=== PATIENT | female | born 1965 | race Caucasian/White ===

== ENCOUNTER 2020-04-12 20:38 | Emergency (ER) | payer BC ==
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
[2020-04-12] MEDS ORDERED: Ketorolac 60 MG/2 ML SDV IM ONE (21:45)
[2020-04-12] MEDS ORDERED: Acetaminophen/HYDROcodone 325-5 MG Tab PO ONE ×2 (22:28→23:02)
[2020-04-12] MEDS ORDERED: Acetaminophen/HYDROcodone 325-5 MG Tab ONE (23:04)
--- NOTE | 2020-04-13 08:24 | CR ---
Right ankle: 3 views of the right ankle were obtained. Comparison: No prior ankle study. Fracture is identified within the lateral malleolus with approximately one cortical width displacement. Soft tissue swelling is noted. Very minimal plantar spur is noted. No additional fracture or other bony abnormality is appreciated. Impression: 1. Slightly displaced lateral malleolus fracture with soft tissue swelling. 2. No other acute bony abnormality is appreciated. Diagnostic code #3 This report was dictated in MDT
--- NOTE | 2020-04-13 08:29 | CR ---
Right tibia and fibula: AP and lateral views of the right tibia and fibula were obtained. Comparison: Study correlated with ankle exam performed on the same day. No previous study is available. Lateral malleolus fracture is again seen. Medial joint space narrowing is seen within the knee. No additional fracture or other abnormality is appreciated. Impression: 1. Lateral malleolus fracture is again noted. 2. Mild medial joint space narrowing within the right knee. Diagnostic code #3 This report was dictated in MDT
== END 2020-04-12 22:50 | disposition home or self-care (01) ==
LOC: JD.ED 20:38 → EDBD 20:38 → JD.ED 22:50
DX: S82.831A Other fracture of upper and lower end of right fibula, initial encounter for closed fracture (principal); K21.9 Gastro-esophageal reflux disease without esophagitis; F32.9 Major depressive disorder, single episode, unspecified; F17.210 Nicotine dependence, cigarettes, uncomplicated; Z79.899 Other long term (current) drug therapy; V80.010A Animal-rider injured by fall from or being thrown from horse in noncollision accident, initial encounter
CPT/HCPCS: 29515; 73590; 73610; 96372; 99283; A9270; J1885; 99282